=== PATIENT | male | born 1955 | race Caucasian/White ===

== ENCOUNTER 2016-07-28 10:32 | Day surgery (SDC) | payer BC, OTHER ==
--- NOTE | ~2016-07-28 | EGD ---
EGD REPORT [facility] [address] [id number] NAME: LUIS ANTONIO CALZADA : [birth year] STATUS : REG [facility]#: [id number] AGE: 61 ADM/REG DATE : 07/28/16 MR#: [id number] REPORT SERV DATE: 07/28/16 DICTATED BY: CLAUDE CLEMENT III DATE: 07/28/16 REPORT STATUS : Draft [facility]ANS[facility]IB[facility]: [facility] DATE: 07/28/16 Endoscopy Center Patient Name: Luis Antonio Calzada Date of : 1955 Attending MD: CLAUDE CLEMENT III, MD Procedure Date No Time: 07/28/2016 Procedure: Colonoscopy Indications: High risk colon cancer surveillance: Personal history of colonic polyps Referring MD: Ralph Mirza MD Medicines: Propofol per Anesthesia Complications: No immediate complications. Procedure: Pre-Anesthesia Assessment: - ASA Grade Assessment: III - A patient with severe systemic disease. After I obtained informed consent, the scope was passed under direct vision. Throughout the procedure, the patient's blood pressure, pulse, and oxygen saturations were monitored continuously. The PCF [id number] was introduced through the anus and advanced to the cecum, identified by appendiceal orifice and ileocecal valve. The colonoscopy was performed with ease. The patient tolerated the procedure well. The quality of the bowel preparation was good. Findings: Multiple small-mouthed diverticula were found in the sigmoid colon. Internal hemorrhoids were found during retroflexion. Two sessile polyps were found in the ascending colon. The polyps were 5 to 6 mm in size. These polyps were removed with a cold snare. Resection and retrieval were complete. A sessile polyp was found in the rectum. The polyp was 7 mm in size. The polyp was removed with a cold snare. Resection and retrieval were complete. Impression: - Diverticulosis in the sigmoid colon. - Internal hemorrhoids. - Two 5 to 6 mm polyps in the ascending colon. Resected and retrieved. - One 7 mm polyp in the rectum. Resected and retrieved. Recommendation: - Patient has a contact number available for emergencies. The signs and symptoms of potential delayed complications were discussed with the patient. Return to normal activities tomorrow. Written discharge EGD REPORT [address] [id number] NAME: LUIS ANTONIO CALZADA : [birth year] STATUS : REG [facility] PAT#: [id number] AGE: 61 ADM/REG DATE : 07/28/16 MR#: [id number] REPORT SERV DATE: 07/28/16 DICTATED BY: CLAUDE CLEMENT III DATE: 07/28/16 REPORT STATUS : Draft TRANSCRIBED BY: [employer] DATE: 07/28/16 instructions were provided to the patient. - Discharge patient to home. - High fiber diet indefinitely. - Continue present medications. - Await pathology results. Procedure Code(s): --- Professional --- 57333, Colonoscopy, flexible, proximal to splenic flexure; with removal of tumor(s), polyp(s), or other lesion(s) by snare technique Diagnosis Code(s): --- Professional --- K64.8, Other hemorrhoids K57.30, Diverticulosis of large intestine without perforation or abscess without bleeding K62.1, Rectal polyp D12.2, Benign neoplasm of ascending colon Z86.010, Personal history of colonic polyps CPT copyright 2013 [employer]. All rights reserved. The codes documented in this report are preliminary and upon spreader operator automatic review may be revised to meet current compliance requirements. CLAUDE CLEMENT III, MD 07/28/2016 12:05 PM This report has been signed electronically. Number of Addenda: 0 Note Initiated On: 07/28/2016 11:32 AM Scope Withdrawal Time 0 hours 15 minutes 32 seconds [id number] [place] [id number]
[~2016-07-28 10:32] MED LIST: ASAB PO; AVAP150 PO; BENICAR40 PO; CAL MAG PO; CELLCEPT5 PO; COUMADIN4 MG PO; COUMADIN6 MG PO; COZ50 PO; DAPSONE 100 MG100 MG OR; EZFE 200200 MG PO; FISH-EPA1000 MG PO; IRON PO; LOVENOX SC; MULTIPLE VIT PO; NULOJIX250 MG IV; P1 PO; P5 PO; PREDNISONE2.5 MG PO; SODIUM BICARBONATE PO; T PO; TRILIPIX45 MG PO; V5 PO; VITAMIN B-12 PO; VITAMIN C100 M1 PO; VITAMIN D-3 PO; VITAMIN D400 UNI1 PO; VITC500 PO; Z300 PO; ZOCOR40 PO; ZYDONE1 TA2 PO
== END 2016-07-28 23:59 | disposition home health service (06) ==
LOC: DMU 10:32
PROVIDERS: Internal Medicine Gastroenterology
PROC: 0DBP8ZZ Excision of Rectum, Via Natural or Artificial Opening Endoscopic (ICD-10-PCS; 2016-07-28)
PROC: 0DBK8ZZ Excision of Ascending Colon, Via Natural or Artificial Opening Endoscopic (ICD-10-PCS; principal; 2016-07-28 12:00)
DX: D12.8 Benign neoplasm of rectum (principal); D12.2 Benign neoplasm of ascending colon; K64.8 Other hemorrhoids; K57.30 Diverticulosis of large intestine without perforation or abscess without bleeding; I10 Essential (primary) hypertension; Z88.1 Allergy status to other antibiotic agents; Z88.5 Allergy status to narcotic agent; Z88.8 Allergy status to other drugs, medicaments and biological substances; Z86.010 Personal history of colon polyps; Z98.890 Other specified postprocedural states
CPT/HCPCS: 88305